=== PATIENT | male | born 1935 | race Caucasian/White ===

== ENCOUNTER 2016-11-17 16:13 | Emergency (ER) | payer MEDICARE, BC, OTHER ==
[~2016-11-17 16:13] MED LIST: AMB5 PO; ASAB PO; BUM2 PO; COUMADIN4 MG PO; COZ25 PO; DEMA100 PO; DSS PO; GLUCCHONDR PO; HALF81 PO; IFEREX 151 PO; K-TABS10 MEQ PO; KDUR20 PO; KLOR-CON M2020 MEQ PO; L20 PO; L40 PO; LIOR10 PO; MAGOX4 PO; MIRALAXPKT PO; MOVE FREE PO; NORCO1 TA1 PO; NTG150 SL; PEP20 PO; REVATIO20 PO; SYN.15 PO; SYN125 PO; TOPXL25 PO; VYTORIN 10/20 T1 TAB PO; ZAROX2.5B PO
[2016-11-17 17:19] LABS: BASOPHILS 0.2 %; BASOPHILS ABSOLUTE 0.01 10/3/uL (0.0-0.16); EOSINOPHILS 2.9 %; EOSINOPHILS ABSOLUTE 0.14 10/3/uL (0.0-0.53); ER CBC TAT 0 Hrs 07 Mins; HEMATOCRIT 32.4 % (40.0-51.0); HEMOGLOBIN 10.7 g/dL (13.6-17.8); IMMATURE GRANULOCYTES 0.4 %; IMMATURE GRANULOCYTES ABSOLUTE 0.02 10/3/uL (0.0-0.11); LYMPHOCYTES 7.6 %; LYMPHOCYTES ABSOLUTE 0.37 10/3/uL (0.67-4.30); MEAN CORPUSCULAR HEMOGLOB 34.7 pg (26.0-34.0); MEAN CORPUSCULAR VOLUME 105.2 fL (80-100); MEAN PLATELET VOLUME 8.9 fL (9.2-13.0); MONOCYTES 12.9 %; MONOCYTES ABSOLUTE 0.63 10/3/uL (0.21-1.20); NEUTROPHILS ABSOLUTE 3.73 10/3/uL (2.02-8.40); PLATELET COUNT 140 10/3/uL (150-400); RBC DISTRIBUTION WIDTH 16.9 % (12.0-16.0); RED CELL COUNT 3.08 10/6/uL (4.7-6.1); WHITE BLOOD CELLS 4.9 10/3/uL (4.5-10.5)
[2016-11-17 17:21] LABS: MANUAL DIFF NO %
[2016-11-17 17:29] LABS: INTERNATIONAL NORMAL RATI 2.3 UNITS (-); PARTIAL THROMBO TIME 41.7 SEC (22.5-37.2); PROTIME (NOT ORD) 24.7 SEC (12.0-14.5)
[2016-11-17 17:36] LABS: A/G RATIO 0.7 (0.7-1.9); ALBUMIN 3.4 G/DL (3.5-5.0); ALKALINE PHOSPHATASE 160 U/L (45-117); BUN (BLOOD UREA NITROGEN) 27 MG/DL (6-23); CALCIUM, SERUM 8.6 MG/DL (8.5-10.4); CHLORIDE, SERUM 97 MMOL/L (96-112); CO2 (CARBON DIOXIDE) 31 MMOL/L (24-34); CREATININE 1.16 MG/DL (0.70-1.30); GFR AFRICAN AMERICAN 68 ML/MIN (>=60); GFR NON AFRICAN AMERICAN 58 ML/MIN (>=60); GLOBULIN 4.9 G/DL (2.5-4.1); POTASSIUM, SERUM 4.1 MMOL/L (3.5-5.3); SGOT(AST) 34 U/L (5-40); SGPT(ALT) 22 U/L (5-65); SODIUM, SERUM 136 MMOL/L (135-148); TOTAL BILIRUBIN 1.4 MG/DL (0-1.2); TOTAL PROTEIN 8.3 G/DL (6.0-8.5); TROPONIN I <0.02 NG/ML (<0.05)
[2016-11-17 17:37] LABS: CPK 129 U/L (0-200); GLUCOSE, SERUM 106 MG/DL (60-99)
[2016-11-17 18:07] LABS: WBC (NOT ORDERED) (RFLEX) 0 (0-5)
[2016-11-17 18:23] LABS: ASCORBIC ACID (UR NOT ORDER) 40 (NEG); BILIRUBIN, URINE NEGATIVE (NEG); KETONE, URINE NEGATIVE (NEG); LEUKOCYTE ESTERASE(NOT OR NEG (NEG); NITRITE (URINE) NEG (NEG)
[2016-12-07] MEDS ORDERED: REVATIO20 PO (14:27)
[2016-12-11] MEDS ORDERED: DSS PO (09:34)
[2016-12-12] MEDS ORDERED: LOVENOX40 SC (05:41)
== END 2016-11-18 | disposition home or self-care (01) ==
LOC: ER 16:13
PROVIDERS: Emergency Medicine
DX: I27.81 Cor pulmonale (chronic) (principal); I50.9 Heart failure, unspecified; R18.8 Other ascites; J90 Pleural effusion, not elsewhere classified; S32.029D Unspecified fracture of second lumbar vertebra, subsequent encounter for fracture with routine healing; I10 Essential (primary) hypertension; R26.89 Other abnormalities of gait and mobility; I25.2 Old myocardial infarction; I48.91 Unspecified atrial fibrillation; Z95.5 Presence of coronary angioplasty implant and graft; W19.XXXD Unspecified fall, subsequent encounter
CPT/HCPCS: 70450; 71250; 74176; 74177; 80053; 81001; 82550; 83880; 84484; 85025; 85610; 85730; 93005; 99284; A9270-GY; J2405; Q9967